=== PATIENT | female | born 2005 | race Asian ===

== ENCOUNTER 2024-06-08 13:20 | Outpatient (CLI) | payer MEDICAID, SELFPAY | END 2024-06-08 13:21 | disposition home or self-care (01) | LOC: NFLDREF 06-12 04:38 | PROVIDERS: Visit Provider Physician Assistant | DX: N39.0 Urinary tract infection, site not specified (principal); B96.20 Unspecified Escherichia coli [E. coli] as the cause of diseases classified elsewhere | CPT/HCPCS: 87086; 87186 ==